=== PATIENT | female | born 1945 | race Caucasian/White ===

== ENCOUNTER 2017-01-23 16:17 | Inpatient (IN) | payer MEDICARE, MEDICAID ==
[~2017-01-23] VITALS: Ht 162.6 cm; Wt 90.7 kg
[2017-01-23] MEDS ORDERED: RISPERIDONE 1 MG TABLET PO ONE (20:00)
[2017-01-23] MEDS ORDERED: LORazepam 2 MG/ML, 1ML IVPush ONE (20:30)
[2017-01-23] MEDS ORDERED: BISACODYL 10 MG SUPP PR PRN (20:30)
[2017-01-23] MEDS ORDERED: LORazepam 2 MG/ML, 1ML IM ONE (20:30)
[2017-01-23] MEDS ORDERED: ZIPRASIDONE 20 MG INJ IM PRN (20:30)
[2017-01-23] MEDS ORDERED: DOCUSATE 100 MG CAPSULE PO PRN (20:30)
[2017-01-23] MEDS ORDERED: ENOXAPARIN 40 MG/0.4 ML SQ SCH (20:30)
[2017-01-23] MEDS ORDERED: ONDANSETRON ODT 4 MG PO PRN (20:30)
[2017-01-23] MEDS ORDERED: ZIPRASIDONE 20 MG INJ IM ONE ×2 (20:30→22:09)
[2017-01-23] MEDS ORDERED: ACETAMINOPHEN 325 MG TABLET PO PRN (20:30)
[2017-01-23] MEDS ORDERED: POLYETHYLENE GLYCOL 17 GM PACKET PO PRN (20:30)
[2017-01-23] MEDS: RISPERIDONE 1 MG TABLET PO SCH (21:00)
[2017-01-23] MEDS ORDERED: TRIF10TA PO (21:07)
[2017-01-23] MEDS ORDERED: TRIF5TAB7 PO (21:07)
[2017-01-23] MEDS ORDERED: LORazepam 2 MG/ML, 1ML ONE (22:42)
[2017-01-23 23:28] LABS: HEMATOCRIT 31.2 % (34.6-47.8); HEMOGLOBIN 10.5 g/dL (11.7-16.4); WHITE BLOOD COUNT 5.8 x10^3/uL (3.4-10)
[2017-01-23 23:43] LABS: ACETAMINOPHEN < 2 mcg/mL (10-30)
[2017-01-24 00:50] VITALS: BP 177/100
[2017-01-24 02:31] VITALS: BP 143/88
[2017-01-24] MEDS ORDERED: ENOXAPARIN 30 MG/0.3 ML SQ SCH ×2 (07:00→21:00)
[2017-01-24 07:20] VITALS: BP 137/81
[2017-01-24] MEDS: HEPARIN 5,000 UNITS/ML, 1ML SQ SCH ×2 (09:00→21:00)
[2017-01-24] MEDS: RISPERIDONE 1 MG TABLET PO SCH ×2 (09:15→22:59)
[2017-01-24 14:30] VITALS: BP 138/77
[2017-01-24 20:00] VITALS: BP 144/78
[2017-01-25 03:00] VITALS: BP 110/74
[2017-01-25 04:56] LABS: HEMOGLOBIN 9.6 g/dL (11.7-16.4); WHITE BLOOD COUNT 5.1 x10^3/uL (3.4-10)
[2017-01-25 05:02] LABS: BLOOD UREA NITROGEN 61 mg/dL (7-18)
[2017-01-25 09:10] VITALS: BP 133/86
[2017-01-25] MEDS: HEPARIN 5,000 UNITS/ML, 1ML SQ SCH ×2 (09:27→21:00)
[2017-01-25] MEDS: RISPERIDONE 1 MG TABLET PO SCH ×2 (09:28→21:00)
[2017-01-25 14:01] VITALS: BP 107/69
[2017-01-25] MEDS ORDERED: POLYETHYLENE GLYCOL 17 GM PACKET PO PRN (15:30)
[2017-01-25] MEDS ORDERED: ONDANSETRON ODT 4 MG PO PRN (15:30)
[2017-01-25] MEDS ORDERED: BISACODYL 10 MG SUPP PR PRN (15:30)
[2017-01-25] MEDS ORDERED: ZIPRASIDONE 20 MG INJ IM PRN (15:30)
[2017-01-25] MEDS ORDERED: ACETAMINOPHEN 325 MG TABLET PO PRN (15:30)
[2017-01-25 19:30] VITALS: BP 169/93
[2017-01-26] MEDS: RISPERIDONE 1 MG TABLET PO SCH ×2 (00:54→09:21)
[2017-01-26 02:45] VITALS: BP 138/85
[2017-01-26 07:25] VITALS: BP 122/78
[2017-01-26] MEDS: HEPARIN 5,000 UNITS/ML, 1ML SQ SCH ×2 (09:21→21:00)
[2017-01-26] MEDS ORDERED: SODIUM CHLORIDE 0.9% 1,000 ML IV SCH (10:00)
[2017-01-26] MEDS: TRIFLUOPERAZINE 5 MG PO SCH ×2 (12:19→21:00)
[2017-01-26] MEDS: DIVALPROEX 125 MG CAP.SPRINK PO SCH ×2 (12:20→16:55)
[2017-01-26] MEDS: CITALOPRAM 20 MG TABLET PO SCH (12:20)
[2017-01-26 12:35] VITALS: BP 167/78
[2017-01-26] MEDS: MIRTAZAPINE 15 MG TABLET PO SCH (21:00)
[2017-01-27] MEDS: DIVALPROEX 125 MG CAP.SPRINK PO SCH ×3 (02:00→18:00)
[2017-01-27 07:10] VITALS: BP 155/86
[2017-01-27] MEDS: CITALOPRAM 20 MG TABLET PO SCH (08:34)
[2017-01-27] MEDS: MEMANTINE 10MG TABLET PO SCH (08:35)
[2017-01-27] MEDS: TRIFLUOPERAZINE 2 MG PO SCH ×2 (08:35→21:00)
[2017-01-27] MEDS: HEPARIN 5,000 UNITS/ML, 1ML SQ SCH ×2 (08:35→21:00)
[2017-01-27 19:05] VITALS: BP 126/78
[2017-01-27] MEDS: MIRTAZAPINE 15 MG TABLET PO SCH (21:00)
[2017-01-28] MEDS: DIVALPROEX 125 MG CAP.SPRINK PO SCH ×3 (02:00→18:00)
[2017-01-28 03:45] VITALS: BP 149/89
[2017-01-28 07:42] VITALS: BP 147/92
[2017-01-28] MEDS: TRIFLUOPERAZINE 2 MG PO SCH ×2 (09:00→20:43)
[2017-01-28] MEDS: HEPARIN 5,000 UNITS/ML, 1ML SQ SCH ×2 (09:00→20:43)
[2017-01-28] MEDS: CITALOPRAM 20 MG TABLET PO SCH (09:00)
[2017-01-28] MEDS: MEMANTINE 10MG TABLET PO SCH (09:00)
[2017-01-28] MEDS ORDERED: TRIFLUOPERAZINE 1 MG PO ONE (13:00)
[2017-01-28] MEDS ORDERED: TRIFLUOPERAZINE 2 MG PO ONE (13:00)
[2017-01-28 13:53] VITALS: BP 170/70
[2017-01-28 19:52] VITALS: BP 167/77
[2017-01-28] MEDS: MIRTAZAPINE 15 MG TABLET PO SCH (20:43)
[2017-01-29 01:01] VITALS: BP 170/101
[2017-01-29] MEDS: DIVALPROEX 125 MG CAP.SPRINK PO SCH ×2 (02:00→10:00)
[2017-01-29] MEDS: CITALOPRAM 20 MG TABLET PO SCH (09:00)
[2017-01-29] MEDS: TRIFLUOPERAZINE 2 MG PO SCH (09:00)
[2017-01-29] MEDS: MEMANTINE 10MG TABLET PO SCH (09:00)
[2017-01-29] MEDS: HEPARIN 5,000 UNITS/ML, 1ML SQ SCH ×2 (09:00→21:00)
[2017-01-29] MEDS ORDERED: hydrALAzine 20 MG/ML, 1ML IV PRN (12:00)
[2017-01-29] MEDS: INSULIN ASPART 100 UNITS/ML, PEN SQ-INSULIN SCH ×2 (16:00→21:00)
[2017-01-29] MEDS: METOPROLOL TARTRATE 25 MG TABLET PO SCH (17:39)
[2017-01-29 20:00] VITALS: BP 147/83
[2017-01-29] MEDS: TRIFLUOPERAZINE 10 MG PO SCH (21:00)
[2017-01-29] MEDS ORDERED: TRIFLUOPERAZINE 2 MG PO SCH (21:00)
[2017-01-29] MEDS ORDERED: TRIFLUOPERAZINE 10 MG PO SCH (21:00)
[2017-01-30 04:57] VITALS: BP 134/88
[2017-01-30] MEDS: METOPROLOL TARTRATE 25 MG TABLET PO SCH ×3 (05:25→18:14)
[2017-01-30 06:48] VITALS: BP 135/81
[2017-01-30] MEDS: INSULIN ASPART 100 UNITS/ML, PEN SQ-INSULIN SCH ×4 (07:00→21:00)
[2017-01-30 08:05] LABS: BLOOD UREA NITROGEN 59 mg/dL (7-18)
[2017-01-30] MEDS: MEMANTINE 10MG TABLET PO SCH (08:39)
[2017-01-30] MEDS: HEPARIN 5,000 UNITS/ML, 1ML SQ SCH ×2 (08:40→21:00)
[2017-01-30] MEDS: TRIFLUOPERAZINE 10 MG PO SCH ×3 (08:40→11:37)
[2017-01-30 13:58] VITALS: BP 150/81
[2017-01-30 20:32] VITALS: BP 145/77
[2017-01-31 02:59] VITALS: BP 135/80
[2017-01-31] MEDS: METOPROLOL TARTRATE 25 MG TABLET PO SCH ×2 (05:33→18:00)
[2017-01-31] MEDS: INSULIN ASPART 100 UNITS/ML, PEN SQ-INSULIN SCH ×4 (07:00→20:46)
[2017-01-31] MEDS: TRIFLUOPERAZINE 10 MG PO SCH ×2 (08:36→20:45)
[2017-01-31] MEDS: MEMANTINE 10MG TABLET PO SCH (08:38)
[2017-01-31] MEDS: HEPARIN 5,000 UNITS/ML, 1ML SQ SCH ×2 (08:44→20:45)
[2017-01-31 15:55] VITALS: BP 152/87
[2017-01-31 18:40] VITALS: BP 173/83
[2017-02-01 01:42] VITALS: BP 150/76
[2017-02-01 05:07] LABS: HEMATOCRIT 30.2 % (34.6-47.8); HEMOGLOBIN 10.1 g/dL (11.7-16.4); WHITE BLOOD COUNT 5.9 x10^3/uL (3.4-10)
[2017-02-01 05:15] LABS: BLOOD UREA NITROGEN 60 mg/dL (7-18)
[2017-02-01] MEDS: METOPROLOL TARTRATE 25 MG TABLET PO SCH ×2 (05:22→18:00)
[2017-02-01] MEDS: INSULIN ASPART 100 UNITS/ML, PEN SQ-INSULIN SCH ×4 (07:00→21:00)
[2017-02-01 07:17] VITALS: BP 152/80
[2017-02-01] MEDS: HEPARIN 5,000 UNITS/ML, 1ML SQ SCH ×2 (09:00→21:00)
[2017-02-01] MEDS: TRIFLUOPERAZINE 10 MG PO SCH ×2 (12:18→21:00)
[2017-02-01] MEDS: MEMANTINE 10MG TABLET PO SCH (12:18)
[2017-02-01 13:36] VITALS: BP 155/80
[2017-02-01 19:29] VITALS: BP 152/76
[2017-02-01] MEDS ORDERED: ONDANSETRON ODT 4 MG PO PRN (19:30)
[2017-02-01] MEDS ORDERED: POLYETHYLENE GLYCOL 17 GM PACKET PO PRN (19:30)
[2017-02-01] MEDS ORDERED: BISACODYL 10 MG SUPP PR PRN (19:30)
[2017-02-01] MEDS ORDERED: hydrALAzine 20 MG/ML, 1ML IV PRN (19:30)
[2017-02-01] MEDS ORDERED: ZIPRASIDONE 20 MG INJ IM PRN (19:30)
[2017-02-01] MEDS ORDERED: ACETAMINOPHEN 325 MG TABLET PO PRN (19:30)
[2017-02-02] MEDS ORDERED: ZIPRASIDONE 20 MG INJ IM ONE
[2017-02-02 01:57] VITALS: BP 144/72
[2017-02-02] MEDS: METOPROLOL TARTRATE 25 MG TABLET PO SCH ×2 (06:00→16:44)
[2017-02-02] MEDS: INSULIN ASPART 100 UNITS/ML, PEN SQ-INSULIN SCH ×3 (07:00→16:00)
[2017-02-02 08:13] VITALS: BP 158/91
[2017-02-02] MEDS: MEMANTINE 10MG TABLET PO SCH ×2 (08:23→09:00)
[2017-02-02] MEDS: TRIFLUOPERAZINE 10 MG PO SCH ×2 (08:25→19:34)
[2017-02-02] MEDS: HEPARIN 5,000 UNITS/ML, 1ML SQ SCH ×2 (09:00→19:39)
[2017-02-02 13:52] VITALS: BP 145/81
[2017-02-02 19:47] VITALS: BP 142/85
[2017-02-03 01:03] VITALS: BP 136/82
[2017-02-03] MEDS: METOPROLOL TARTRATE 25 MG TABLET PO SCH ×2 (05:52→18:00)
[2017-02-03 07:20] VITALS: BP 148/86
[2017-02-03 07:26] VITALS: BP 150/88
[2017-02-03] MEDS: MEMANTINE 10MG TABLET PO SCH (09:00)
[2017-02-03] MEDS: HEPARIN 5,000 UNITS/ML, 1ML SQ SCH ×2 (09:00→21:00)
[2017-02-03] MEDS: TRIFLUOPERAZINE 10 MG PO SCH ×2 (11:59→21:23)
[2017-02-03 13:55] VITALS: BP 143/91
[2017-02-03 19:18] VITALS: BP 148/86
[2017-02-04 01:22] VITALS: BP 141/82
[2017-02-04] MEDS: METOPROLOL TARTRATE 25 MG TABLET PO SCH ×2 (06:00→17:14)
[2017-02-04 07:41] VITALS: BP 151/79
[2017-02-04] MEDS: TRIFLUOPERAZINE 10 MG PO SCH ×2 (10:06→20:19)
[2017-02-04] MEDS: HEPARIN 5,000 UNITS/ML, 1ML SQ SCH ×2 (10:11→21:00)
[2017-02-04] MEDS: MEMANTINE 10MG TABLET PO SCH (10:11)
[2017-02-04 13:57] VITALS: BP 179/105
[2017-02-04 20:28] VITALS: BP 161/119
[2017-02-04 22:10] VITALS: BP 147/96
[2017-02-05 01:05] VITALS: BP 123/74
[2017-02-05] MEDS: METOPROLOL TARTRATE 25 MG TABLET PO SCH ×3 (06:00→17:41)
[2017-02-05 07:44] VITALS: BP 169/79
[2017-02-05] MEDS: TRIFLUOPERAZINE 10 MG PO SCH ×2 (07:57→21:31)
[2017-02-05] MEDS: MEMANTINE 10MG TABLET PO SCH (07:58)
[2017-02-05] MEDS: HEPARIN 5,000 UNITS/ML, 1ML SQ SCH ×2 (07:58→21:00)
[2017-02-05] MEDS ORDERED: METOPROLOL TARTRATE 25 MG TABLET PO SCH (10:00)
[2017-02-05 13:57] VITALS: BP 150/79
[2017-02-05 20:29] VITALS: BP 133/77
[2017-02-06 05:26] VITALS: BP 130/70
[2017-02-06] MEDS: METOPROLOL TARTRATE 25 MG TABLET PO SCH ×2 (06:00→18:27)
[2017-02-06 07:27] VITALS: BP 134/78
[2017-02-06] MEDS: TRIFLUOPERAZINE 10 MG PO SCH ×2 (07:28→20:53)
[2017-02-06] MEDS: HEPARIN 5,000 UNITS/ML, 1ML SQ SCH ×2 (07:28→20:53)
[2017-02-06] MEDS: MEMANTINE 10MG TABLET PO SCH (07:28)
[2017-02-06 17:05] VITALS: BP 152/91
[2017-02-07] MEDS: METOPROLOL TARTRATE 25 MG TABLET PO SCH ×2 (06:43→18:00)
[2017-02-07 08:09] VITALS: BP 155/78
[2017-02-07] MEDS: HEPARIN 5,000 UNITS/ML, 1ML SQ SCH ×2 (09:00→20:33)
[2017-02-07] MEDS: MEMANTINE 10MG TABLET PO SCH (09:00)
[2017-02-07] MEDS: TRIFLUOPERAZINE 10 MG PO SCH ×2 (11:01→20:33)
[2017-02-07 19:00] VITALS: BP 142/83
[2017-02-08 03:55] VITALS: BP 132/67
[2017-02-08] MEDS: METOPROLOL TARTRATE 25 MG TABLET PO SCH ×2 (05:31→18:00)
[2017-02-08] MEDS: HEPARIN 5,000 UNITS/ML, 1ML SQ SCH ×2 (09:00→20:45)
[2017-02-08] MEDS: MEMANTINE 10MG TABLET PO SCH (09:00)
[2017-02-08 09:12] VITALS: BP 176/84
[2017-02-08] MEDS: TRIFLUOPERAZINE 10 MG PO SCH ×2 (10:46→20:44)
[2017-02-08 15:16] VITALS: BP 155/83
[2017-02-08] MEDS ORDERED: POLYETHYLENE GLYCOL 17 GM PACKET PO PRN (16:00)
[2017-02-08] MEDS ORDERED: ZIPRASIDONE 20 MG INJ IM PRN (16:00)
[2017-02-08] MEDS ORDERED: ACETAMINOPHEN 325 MG TABLET PO PRN (16:00)
[2017-02-08] MEDS ORDERED: hydrALAzine 20 MG/ML, 1ML IV PRN (16:00)
[2017-02-08] MEDS ORDERED: ONDANSETRON ODT 4 MG PO PRN (16:00)
[2017-02-08] MEDS ORDERED: BISACODYL 10 MG SUPP PR PRN (16:00)
[2017-02-08 19:45] VITALS: BP 154/81
[2017-02-09 03:56] VITALS: BP 126/75
[2017-02-09] MEDS: METOPROLOL TARTRATE 25 MG TABLET PO SCH ×2 (06:00→18:00)
[2017-02-09] MEDS: MEMANTINE 10MG TABLET PO SCH (09:00)
[2017-02-09] MEDS: HEPARIN 5,000 UNITS/ML, 1ML SQ SCH ×2 (09:00→20:38)
[2017-02-09 09:05] VITALS: BP 161/87
[2017-02-09] MEDS: TRIFLUOPERAZINE 10 MG PO SCH ×2 (09:34→21:06)
[2017-02-09 14:30] VITALS: BP 154/85
[2017-02-09 19:32] VITALS: BP 158/83
[2017-02-10 00:26] VITALS: BP 127/76
[2017-02-10] MEDS: METOPROLOL TARTRATE 25 MG TABLET PO SCH ×2 (05:16→18:00)
[2017-02-10 07:15] VITALS: BP 154/85
[2017-02-10] MEDS: MEMANTINE 10MG TABLET PO SCH (09:00)
[2017-02-10] MEDS: HEPARIN 5,000 UNITS/ML, 1ML SQ SCH ×2 (09:00→21:00)
[2017-02-10] MEDS: TRIFLUOPERAZINE 10 MG PO SCH ×2 (10:24→21:00)
[2017-02-10 14:11] VITALS: BP 157/91
[2017-02-10 19:19] VITALS: BP 146/79
[2017-02-11 01:38] VITALS: BP 123/74
[2017-02-11] MEDS: METOPROLOL TARTRATE 25 MG TABLET PO SCH ×2 (05:31→16:29)
[2017-02-11 07:13] VITALS: BP 182/110
[2017-02-11] MEDS: TRIFLUOPERAZINE 10 MG PO SCH ×2 (08:31→20:43)
[2017-02-11] MEDS: MEMANTINE 10MG TABLET PO SCH (08:32)
[2017-02-11] MEDS: HEPARIN 5,000 UNITS/ML, 1ML SQ SCH ×2 (08:32→20:43)
[2017-02-11 13:50] VITALS: BP 190/102
[2017-02-11 18:54] VITALS: BP 148/87
[2017-02-12 00:37] VITALS: BP 169/89
[2017-02-12] MEDS: METOPROLOL TARTRATE 25 MG TABLET PO SCH ×2 (03:55→18:00)
[2017-02-12 07:48] VITALS: BP 156/90
[2017-02-12] MEDS: HEPARIN 5,000 UNITS/ML, 1ML SQ SCH ×2 (09:00→20:12)
[2017-02-12] MEDS: TRIFLUOPERAZINE 10 MG PO SCH ×2 (10:34→20:12)
[2017-02-12] MEDS: MEMANTINE 10MG TABLET PO SCH (10:34)
[2017-02-12 12:46] VITALS: BP 146/84
[2017-02-12 18:29] VITALS: BP 171/89
[2017-02-13 00:15] VITALS: BP 132/87
[2017-02-13] MEDS: METOPROLOL TARTRATE 25 MG TABLET PO SCH ×2 (05:09→17:58)
[2017-02-13 06:46] VITALS: BP 140/83
[2017-02-13] MEDS: MEMANTINE 10MG TABLET PO SCH (09:00)
[2017-02-13] MEDS: TRIFLUOPERAZINE 10 MG PO SCH ×2 (09:00→21:18)
[2017-02-13] MEDS: HEPARIN 5,000 UNITS/ML, 1ML SQ SCH ×2 (09:00→21:00)
[2017-02-13 13:00] VITALS: BP 155/70
[2017-02-14] MEDS: METOPROLOL TARTRATE 25 MG TABLET PO SCH ×2 (06:00→18:00)
[2017-02-14 08:42] VITALS: BP 139/86
[2017-02-14] MEDS: HEPARIN 5,000 UNITS/ML, 1ML SQ SCH ×2 (09:00→20:01)
[2017-02-14] MEDS: MEMANTINE 10MG TABLET PO SCH (09:02)
[2017-02-14] MEDS: TRIFLUOPERAZINE 10 MG PO SCH ×2 (09:02→19:55)
[2017-02-14 14:00] VITALS: BP 117/78
[2017-02-14 19:51] VITALS: BP 137/65
[2017-02-15 03:05] VITALS: BP 139/82
[2017-02-15] MEDS: METOPROLOL TARTRATE 25 MG TABLET PO SCH ×2 (06:42→16:54)
[2017-02-15 08:37] VITALS: BP 142/91
[2017-02-15] MEDS: MEMANTINE 10MG TABLET PO SCH (09:36)
[2017-02-15] MEDS: HEPARIN 5,000 UNITS/ML, 1ML SQ SCH ×2 (09:36→19:47)
[2017-02-15] MEDS: TRIFLUOPERAZINE 10 MG PO SCH ×2 (10:37→19:47)
[2017-02-15 14:00] VITALS: BP 175/104
[2017-02-15] MEDS ORDERED: ONDANSETRON ODT 4 MG PO PRN (14:00)
[2017-02-15] MEDS ORDERED: DOCUSATE 100 MG CAPSULE PO PRN (14:00)
[2017-02-15] MEDS ORDERED: ACETAMINOPHEN 325 MG TABLET PO PRN (14:00)
[2017-02-15] MEDS ORDERED: ZIPRASIDONE 20 MG INJ IM PRN (14:00)
[2017-02-15] MEDS ORDERED: BISACODYL 10 MG SUPP PR PRN (14:00)
[2017-02-15] MEDS ORDERED: hydrALAzine 20 MG/ML, 1ML IV PRN (14:00)
[2017-02-15 19:20] VITALS: BP 165/84
[2017-02-16 01:56] VITALS: BP 134/68
[2017-02-16] MEDS: METOPROLOL TARTRATE 25 MG TABLET PO SCH ×2 (06:00→18:13)
[2017-02-16 07:36] VITALS: BP 144/78
[2017-02-16] MEDS: HEPARIN 5,000 UNITS/ML, 1ML SQ SCH ×2 (07:51→20:05)
[2017-02-16] MEDS: MEMANTINE 10MG TABLET PO SCH (07:51)
[2017-02-16] MEDS: TRIFLUOPERAZINE 10 MG PO SCH ×2 (07:51→20:04)
[2017-02-16 13:28] VITALS: BP 144/87
[2017-02-16 19:39] VITALS: BP 138/84
[2017-02-17 01:20] VITALS: BP 143/88
[2017-02-17] MEDS: METOPROLOL TARTRATE 25 MG TABLET PO SCH ×2 (04:40→17:48)
[2017-02-17 05:01] LABS: HEMATOCRIT 29.6 % (34.6-47.8); HEMOGLOBIN 9.8 g/dL (11.7-16.4); WHITE BLOOD COUNT 6.1 x10^3/uL (3.4-10)
[2017-02-17 05:13] LABS: BLOOD UREA NITROGEN 78 mg/dL (7-18)
[2017-02-17 05:19] LABS: ASPARTATE AMINO TRANSFERASE 24 U/L (15-37)
[2017-02-17 08:22] VITALS: BP 151/88
[2017-02-17] MEDS: TRIFLUOPERAZINE 10 MG PO SCH ×2 (08:59→20:47)
[2017-02-17] MEDS: HEPARIN 5,000 UNITS/ML, 1ML SQ SCH ×2 (09:00→20:49)
[2017-02-17] MEDS: MEMANTINE 10MG TABLET PO SCH (09:00)
[2017-02-17 14:14] VITALS: BP 152/68
[2017-02-17 19:22] VITALS: BP 146/62
[2017-02-18 01:28] VITALS: BP 151/68
[2017-02-18] MEDS: METOPROLOL TARTRATE 25 MG TABLET PO SCH ×2 (06:00→17:45)
[2017-02-18] MEDS: TRIFLUOPERAZINE 10 MG PO SCH ×2 (09:18→21:00)
[2017-02-18] MEDS: HEPARIN 5,000 UNITS/ML, 1ML SQ SCH ×2 (09:19→21:00)
[2017-02-18] MEDS: MEMANTINE 10MG TABLET PO SCH (09:19)
[2017-02-18 09:33] VITALS: BP 174/82
[2017-02-18 15:31] VITALS: BP 178/85
[2017-02-18 19:27] VITALS: BP 184/73
[2017-02-19 01:29] VITALS: BP 152/90
[2017-02-19] MEDS: METOPROLOL TARTRATE 25 MG TABLET PO SCH ×2 (06:00→18:00)
[2017-02-19 07:41] VITALS: BP_SYST 112; BP_SYST 122; BP_DIAS 71; BP_DIAS 82
[2017-02-19] MEDS: MEMANTINE 10MG TABLET PO SCH (09:00)
[2017-02-19] MEDS: HEPARIN 5,000 UNITS/ML, 1ML SQ SCH ×2 (09:00→21:00)
[2017-02-19] MEDS: TRIFLUOPERAZINE 10 MG PO SCH ×2 (09:00→22:54)
[2017-02-19 15:11] VITALS: BP 155/79
[2017-02-19 18:52] VITALS: BP 163/92
[2017-02-20 01:47] VITALS: BP 123/79
[2017-02-20] MEDS: METOPROLOL TARTRATE 25 MG TABLET PO SCH ×2 (05:40→18:00)
[2017-02-20 07:25] VITALS: BP 165/80
[2017-02-20] MEDS: TRIFLUOPERAZINE 10 MG PO SCH ×2 (08:58→20:35)
[2017-02-20] MEDS: HEPARIN 5,000 UNITS/ML, 1ML SQ SCH ×3 (08:58→20:35)
[2017-02-20] MEDS: MEMANTINE 10MG TABLET PO SCH (08:58)
[2017-02-20 14:00] VITALS: BP 122/82
[2017-02-20 18:59] VITALS: BP 150/83
[2017-02-21 02:13] VITALS: BP 163/78
[2017-02-21] MEDS: METOPROLOL TARTRATE 25 MG TABLET PO SCH ×2 (06:00→17:49)
[2017-02-21 07:34] VITALS: BP 135/84
[2017-02-21] MEDS: MEMANTINE 10MG TABLET PO SCH (09:00)
[2017-02-21] MEDS: HEPARIN 5,000 UNITS/ML, 1ML SQ SCH ×3 (09:00→20:41)
[2017-02-21] MEDS: TRIFLUOPERAZINE 10 MG PO SCH ×2 (09:00→20:41)
[2017-02-21 13:41] VITALS: BP 150/78
[2017-02-21 19:58] VITALS: BP 133/67
[2017-02-22 00:49] VITALS: BP 135/74
[2017-02-22] MEDS: METOPROLOL TARTRATE 25 MG TABLET PO SCH ×2 (05:35→18:16)
[2017-02-22 07:39] VITALS: BP 109/70
[2017-02-22] MEDS: TRIFLUOPERAZINE 10 MG PO SCH ×2 (08:20→21:00)
[2017-02-22] MEDS: HEPARIN 5,000 UNITS/ML, 1ML SQ SCH ×3 (08:21→21:00)
[2017-02-22] MEDS: MEMANTINE 10MG TABLET PO SCH (08:21)
[2017-02-22 12:52] VITALS: BP 158/83
[2017-02-22 19:48] VITALS: BP 159/90
[2017-02-22] MEDS ORDERED: ACETAMINOPHEN 325 MG TABLET PO PRN (20:00)
[2017-02-22] MEDS ORDERED: DOCUSATE 100 MG CAPSULE PO PRN (20:00)
[2017-02-22] MEDS ORDERED: ONDANSETRON ODT 4 MG PO PRN (20:00)
[2017-02-22] MEDS ORDERED: ZIPRASIDONE 20 MG INJ IM PRN (20:00)
[2017-02-22] MEDS ORDERED: POLYETHYLENE GLYCOL 17 GM PACKET PO PRN (20:00)
[2017-02-22] MEDS ORDERED: hydrALAzine 20 MG/ML, 1ML IV PRN (20:00)
[2017-02-22] MEDS ORDERED: BISACODYL 10 MG SUPP PR PRN (20:00)
[2017-02-23 05:57] VITALS: BP 154/86
[2017-02-23] MEDS: METOPROLOL TARTRATE 25 MG TABLET PO SCH ×2 (06:45→17:04)
[2017-02-23 08:05] VITALS: BP 120/83
[2017-02-23] MEDS: HEPARIN 5,000 UNITS/ML, 1ML SQ SCH ×3 (08:19→20:46)
[2017-02-23] MEDS: TRIFLUOPERAZINE 10 MG PO SCH ×2 (08:19→20:46)
[2017-02-23] MEDS: MEMANTINE 10MG TABLET PO SCH (08:19)
[2017-02-23 15:35] VITALS: BP 142/88
[2017-02-23 19:26] VITALS: BP 137/82
[2017-02-24 01:23] VITALS: BP 119/72
[2017-02-24] MEDS: METOPROLOL TARTRATE 25 MG TABLET PO SCH ×2 (05:47→17:33)
[2017-02-24 07:45] VITALS: BP 155/81
[2017-02-24] MEDS: MEMANTINE 10MG TABLET PO SCH (09:00)
[2017-02-24] MEDS: HEPARIN 5,000 UNITS/ML, 1ML SQ SCH ×3 (09:00→21:00)
[2017-02-24] MEDS: TRIFLUOPERAZINE 10 MG PO SCH ×2 (09:00→22:44)
[2017-02-24 12:25] VITALS: BP 159/85
[2017-02-24 19:51] VITALS: BP 152/81
[2017-02-25] MEDS: METOPROLOL TARTRATE 25 MG TABLET PO SCH ×2 (06:00→17:28)
[2017-02-25 07:40] VITALS: BP 132/87
[2017-02-25] MEDS: HEPARIN 5,000 UNITS/ML, 1ML SQ SCH ×3 (09:00→21:00)
[2017-02-25] MEDS: TRIFLUOPERAZINE 10 MG PO SCH ×2 (09:00→20:56)
[2017-02-25] MEDS: MEMANTINE 10MG TABLET PO SCH (09:00)
[2017-02-25 15:00] VITALS: BP 166/86
[2017-02-25 20:00] VITALS: BP 177/81
[2017-02-26 03:21] VITALS: BP 152/91
[2017-02-26 07:25] VITALS: BP 138/65
[2017-02-26] MEDS: METOPROLOL TARTRATE 25 MG TABLET PO SCH ×2 (07:30→17:44)
[2017-02-26] MEDS: HEPARIN 5,000 UNITS/ML, 1ML SQ SCH ×3 (07:49→22:00)
[2017-02-26] MEDS: TRIFLUOPERAZINE 10 MG PO SCH ×2 (09:00→19:56)
[2017-02-26] MEDS: MEMANTINE 10MG TABLET PO SCH (09:00)
[2017-02-26 13:40] VITALS: BP 143/95
[2017-02-26 19:04] VITALS: BP 159/84
[2017-02-27 03:35] VITALS: BP 142/89
[2017-02-27] MEDS: METOPROLOL TARTRATE 25 MG TABLET PO SCH ×2 (05:56→17:10)
[2017-02-27] MEDS: HEPARIN 5,000 UNITS/ML, 1ML SQ SCH ×3 (05:57→20:17)
[2017-02-27 07:04] VITALS: BP 151/94
[2017-02-27] MEDS: MEMANTINE 10MG TABLET PO SCH (09:00)
[2017-02-27] MEDS: TRIFLUOPERAZINE 10 MG PO SCH ×2 (09:00→20:17)
[2017-02-27 13:31] VITALS: BP 174/97
[2017-02-27 18:59] VITALS: BP 150/81
[2017-02-28 00:38] VITALS: BP 111/72
[2017-02-28] MEDS: HEPARIN 5,000 UNITS/ML, 1ML SQ SCH ×3 (05:45→22:00)
[2017-02-28] MEDS: METOPROLOL TARTRATE 25 MG TABLET PO SCH ×3 (05:50→17:09)
[2017-02-28 06:52] VITALS: BP 125/73
[2017-02-28] MEDS: MEMANTINE 10MG TABLET PO SCH (08:34)
[2017-02-28] MEDS: TRIFLUOPERAZINE 10 MG PO SCH ×2 (11:06→19:56)
[2017-02-28 13:02] VITALS: BP 138/81
[2017-02-28 18:33] VITALS: BP 161/73
[2017-03-01 02:11] VITALS: BP 144/85
[2017-03-01] MEDS: METOPROLOL TARTRATE 25 MG TABLET PO SCH ×2 (05:54→18:46)
[2017-03-01] MEDS: HEPARIN 5,000 UNITS/ML, 1ML SQ SCH ×3 (05:57→20:22)
[2017-03-01 07:01] VITALS: BP 100/79
[2017-03-01] MEDS: TRIFLUOPERAZINE 10 MG PO SCH ×2 (09:00→20:22)
[2017-03-01] MEDS: MEMANTINE 10MG TABLET PO SCH (09:11)
[2017-03-01 14:00] VITALS: BP 110/78
[2017-03-01] MEDS ORDERED: ACETAMINOPHEN 325 MG TABLET PO PRN (15:00)
[2017-03-01] MEDS ORDERED: POLYETHYLENE GLYCOL 17 GM PACKET PO PRN (15:00)
[2017-03-01] MEDS ORDERED: ZIPRASIDONE 20 MG INJ IM PRN (15:00)
[2017-03-01] MEDS ORDERED: DOCUSATE 100 MG CAPSULE PO PRN (15:00)
[2017-03-01] MEDS ORDERED: hydrALAzine 20 MG/ML, 1ML IV PRN (15:00)
[2017-03-01] MEDS ORDERED: BISACODYL 10 MG SUPP PR PRN (15:00)
[2017-03-01] MEDS ORDERED: ONDANSETRON ODT 4 MG PO PRN (15:00)
[2017-03-01 16:04] VITALS: BP 109/74
[2017-03-01 19:44] VITALS: BP 168/63
[2017-03-02 01:57] VITALS: BP 144/75
[2017-03-02] MEDS: METOPROLOL TARTRATE 25 MG TABLET PO SCH ×2 (04:58→18:00)
[2017-03-02] MEDS: HEPARIN 5,000 UNITS/ML, 1ML SQ SCH ×3 (04:58→22:00)
[2017-03-02 06:57] VITALS: BP 133/82
[2017-03-02] MEDS: MEMANTINE 10MG TABLET PO SCH (09:00)
[2017-03-02] MEDS: TRIFLUOPERAZINE 10 MG PO SCH ×2 (09:00→21:28)
[2017-03-02 12:50] VITALS: BP 169/101
[2017-03-02 18:44] VITALS: BP 163/85
[2017-03-03 00:43] VITALS: BP 150/88
[2017-03-03] MEDS: METOPROLOL TARTRATE 25 MG TABLET PO SCH ×2 (05:51→18:00)
[2017-03-03] MEDS: HEPARIN 5,000 UNITS/ML, 1ML SQ SCH ×3 (06:00→21:51)
[2017-03-03 07:08] VITALS: BP 132/85
[2017-03-03 08:52] LABS: HEMATOCRIT 31.2 % (34.6-47.8); HEMOGLOBIN 10.5 g/dL (11.7-16.4); WHITE BLOOD COUNT 4.9 x10^3/uL (3.4-10)
[2017-03-03] MEDS: MEMANTINE 10MG TABLET PO SCH ×2 (09:00→09:09)
[2017-03-03 09:03] LABS: BLOOD UREA NITROGEN 95 mg/dL (7-18)
[2017-03-03] MEDS: TRIFLUOPERAZINE 10 MG PO SCH ×2 (09:09→21:00)
[2017-03-03 13:40] VITALS: BP 147/78
[2017-03-03 19:01] VITALS: BP 177/103
[2017-03-04 00:50] VITALS: BP 150/82
[2017-03-04] MEDS: HEPARIN 5,000 UNITS/ML, 1ML SQ SCH ×3 (06:00→20:09)
[2017-03-04] MEDS: METOPROLOL TARTRATE 25 MG TABLET PO SCH ×2 (06:00→18:00)
[2017-03-04 08:00] VITALS: BP 156/88
[2017-03-04] MEDS: MEMANTINE 10MG TABLET PO SCH (08:58)
[2017-03-04] MEDS: TRIFLUOPERAZINE 10 MG PO SCH ×2 (08:59→20:08)
[2017-03-04 13:59] VITALS: BP 137/67
[2017-03-04 18:59] VITALS: BP 153/82
[2017-03-05 00:30] VITALS: BP 150/78
[2017-03-05] MEDS: METOPROLOL TARTRATE 25 MG TABLET PO SCH ×2 (05:31→17:37)
[2017-03-05] MEDS: HEPARIN 5,000 UNITS/ML, 1ML SQ SCH ×3 (05:32→22:00)
[2017-03-05 08:44] VITALS: BP 126/81
[2017-03-05] MEDS: MEMANTINE 10MG TABLET PO SCH (09:00)
[2017-03-05] MEDS: TRIFLUOPERAZINE 10 MG PO SCH ×2 (09:00→22:11)
[2017-03-05 15:17] VITALS: BP 147/88
[2017-03-05 20:30] VITALS: BP 155/85
[2017-03-06 02:28] VITALS: BP 150/70
[2017-03-06] MEDS: METOPROLOL TARTRATE 25 MG TABLET PO SCH ×2 (05:41→16:43)
[2017-03-06] MEDS: HEPARIN 5,000 UNITS/ML, 1ML SQ SCH ×3 (05:42→22:00)
[2017-03-06 08:00] VITALS: BP 153/87
[2017-03-06] MEDS: MEMANTINE 10MG TABLET PO SCH (08:45)
[2017-03-06] MEDS: TRIFLUOPERAZINE 10 MG PO SCH ×2 (08:46→21:12)
[2017-03-06 14:00] VITALS: BP 162/80
[2017-03-06 19:54] VITALS: BP 167/93
[2017-03-07 03:45] VITALS: BP 115/71
[2017-03-07] MEDS: HEPARIN 5,000 UNITS/ML, 1ML SQ SCH ×3 (06:00→22:00)
[2017-03-07] MEDS: METOPROLOL TARTRATE 25 MG TABLET PO SCH ×2 (06:11→18:00)
[2017-03-07 07:05] VITALS: BP 135/79
[2017-03-07] MEDS: TRIFLUOPERAZINE 10 MG PO SCH ×2 (09:00→20:22)
[2017-03-07] MEDS: MEMANTINE 10MG TABLET PO SCH (09:00)
[2017-03-07 16:17] VITALS: BP 154/80
[2017-03-07 19:36] VITALS: BP 149/60
[2017-03-08] MEDS: METOPROLOL TARTRATE 25 MG TABLET PO SCH ×2 (05:33→17:44)
[2017-03-08] MEDS: HEPARIN 5,000 UNITS/ML, 1ML SQ SCH ×3 (05:33→19:56)
[2017-03-08 06:43] VITALS: BP 157/90
[2017-03-08] MEDS: TRIFLUOPERAZINE 10 MG PO SCH ×2 (09:00→19:55)
[2017-03-08] MEDS: MEMANTINE 10MG TABLET PO SCH (09:00)
[2017-03-08 18:56] VITALS: BP 176/89
[2017-03-09 03:45] VITALS: BP 165/91
[2017-03-09] MEDS: METOPROLOL TARTRATE 25 MG TABLET PO SCH ×2 (05:37→18:00)
[2017-03-09] MEDS: HEPARIN 5,000 UNITS/ML, 1ML SQ SCH ×3 (06:00→22:00)
[2017-03-09 07:12] VITALS: BP 123/74
[2017-03-09] MEDS: TRIFLUOPERAZINE 10 MG PO SCH ×2 (09:00→21:03)
[2017-03-09] MEDS: MEMANTINE 10MG TABLET PO SCH (09:00)
[2017-03-09] MEDS: LOSARTAN 25MG TABLET PO SCH (10:00)
[2017-03-09 13:46] VITALS: BP 137/81
[2017-03-09 18:48] VITALS: BP 145/84
[2017-03-10 01:12] VITALS: BP 138/78
[2017-03-10] MEDS: HEPARIN 5,000 UNITS/ML, 1ML SQ SCH ×3 (06:00→21:43)
[2017-03-10] MEDS: METOPROLOL TARTRATE 25 MG TABLET PO SCH ×3 (06:00→18:00)
[2017-03-10 06:32] VITALS: BP 142/76
[2017-03-10 06:39] VITALS: BP 174/95
[2017-03-10] MEDS: MEMANTINE 10MG TABLET PO SCH (09:00)
[2017-03-10] MEDS: LOSARTAN 25MG TABLET PO SCH (09:00)
[2017-03-10] MEDS: TRIFLUOPERAZINE 10 MG PO SCH ×2 (10:36→20:30)
[2017-03-10 12:05] VITALS: BP 153/86
[2017-03-10 20:00] VITALS: BP 114/76
[2017-03-11 01:54] VITALS: BP 138/60
[2017-03-11] MEDS: METOPROLOL TARTRATE 25 MG TABLET PO SCH ×2 (06:00→18:00)
[2017-03-11] MEDS: HEPARIN 5,000 UNITS/ML, 1ML SQ SCH ×3 (06:00→22:00)
[2017-03-11 08:15] VITALS: BP 140/91
[2017-03-11] MEDS: MEMANTINE 10MG TABLET PO SCH (09:00)
[2017-03-11] MEDS: LOSARTAN 25MG TABLET PO SCH (09:00)
[2017-03-11] MEDS: TRIFLUOPERAZINE 10 MG PO SCH ×2 (09:00→21:00)
[2017-03-11 14:00] VITALS: BP 138/62
[2017-03-11 18:50] VITALS: BP 166/89
[2017-03-12 04:50] VITALS: BP 167/89
[2017-03-12] MEDS: METOPROLOL TARTRATE 25 MG TABLET PO SCH ×2 (06:00→17:40)
[2017-03-12] MEDS: HEPARIN 5,000 UNITS/ML, 1ML SQ SCH ×3 (06:00→22:00)
[2017-03-12 07:15] VITALS: BP 146/88
[2017-03-12] MEDS: LOSARTAN 25MG TABLET PO SCH (09:00)
[2017-03-12] MEDS: MEMANTINE 10MG TABLET PO SCH (09:00)
[2017-03-12] MEDS: TRIFLUOPERAZINE 10 MG PO SCH ×2 (10:00→22:44)
[2017-03-12 14:46] VITALS: BP_SYST 171; BP_SYST 183; BP_DIAS 92; BP_DIAS 94
[2017-03-12 17:10] VITALS: BP 131/78
[2017-03-12 19:00] VITALS: BP 148/85
[2017-03-13 04:36] VITALS: BP 146/89
[2017-03-13] MEDS: METOPROLOL TARTRATE 25 MG TABLET PO SCH ×2 (05:26→17:37)
[2017-03-13] MEDS: HEPARIN 5,000 UNITS/ML, 1ML SQ SCH ×3 (05:26→20:22)
[2017-03-13 06:30] VITALS: BP 135/93
[2017-03-13] MEDS: MEMANTINE 10MG TABLET PO SCH (09:00)
[2017-03-13] MEDS: LOSARTAN 25MG TABLET PO SCH (09:00)
[2017-03-13 12:24] VITALS: BP 135/79
[2017-03-13] MEDS: TRIFLUOPERAZINE 10 MG PO SCH ×2 (13:52→20:22)
[2017-03-13 20:20] VITALS: BP 170/86
[2017-03-14 02:02] VITALS: BP 138/77
[2017-03-14] MEDS: METOPROLOL TARTRATE 25 MG TABLET PO SCH ×2 (06:06→17:56)
[2017-03-14] MEDS: HEPARIN 5,000 UNITS/ML, 1ML SQ SCH ×3 (06:06→21:22)
[2017-03-14 06:32] VITALS: BP 148/85
[2017-03-14] MEDS: LOSARTAN 25MG TABLET PO SCH (09:00)
[2017-03-14] MEDS: MEMANTINE 10MG TABLET PO SCH (09:00)
[2017-03-14 13:41] VITALS: BP 166/107
[2017-03-14] MEDS: TRIFLUOPERAZINE 10 MG PO SCH ×2 (15:08→21:06)
[2017-03-14 21:13] VITALS: BP 135/77
[2017-03-15 02:22] VITALS: BP 124/71
[2017-03-15] MEDS ORDERED: DOCUSATE 100 MG CAPSULE PO PRN (04:30)
[2017-03-15] MEDS ORDERED: BISACODYL 10 MG SUPP PR PRN (04:30)
[2017-03-15] MEDS ORDERED: ONDANSETRON ODT 4 MG PO PRN (04:30)
[2017-03-15] MEDS ORDERED: hydrALAzine 20 MG/ML, 1ML IV PRN (04:30)
[2017-03-15] MEDS ORDERED: POLYETHYLENE GLYCOL 17 GM PACKET PO PRN (04:30)
[2017-03-15] MEDS ORDERED: ACETAMINOPHEN 325 MG TABLET PO PRN (04:30)
[2017-03-15] MEDS: HEPARIN 5,000 UNITS/ML, 1ML SQ SCH ×3 (06:00→19:34)
[2017-03-15] MEDS: METOPROLOL TARTRATE 25 MG TABLET PO SCH ×2 (06:00→17:55)
[2017-03-15 07:25] VITALS: BP 148/91
[2017-03-15] MEDS: TRIFLUOPERAZINE 10 MG PO SCH ×2 (09:00→19:34)
[2017-03-15] MEDS: LOSARTAN 25MG TABLET PO SCH (09:00)
[2017-03-15] MEDS: MEMANTINE 10MG TABLET PO SCH (09:00)
[2017-03-15 14:15] VITALS: BP 193/73
[2017-03-15 15:49] VITALS: BP 149/79
[2017-03-15 20:56] VITALS: BP 150/80
[2017-03-16] MEDS: METOPROLOL TARTRATE 25 MG TABLET PO SCH ×2 (06:00→17:11)
[2017-03-16] MEDS: HEPARIN 5,000 UNITS/ML, 1ML SQ SCH ×3 (06:00→19:50)
[2017-03-16] MEDS: LOSARTAN 25MG TABLET PO SCH (08:11)
[2017-03-16] MEDS: MEMANTINE 10MG TABLET PO SCH (08:11)
[2017-03-16] MEDS: TRIFLUOPERAZINE 10 MG PO SCH ×2 (08:11→19:42)
[2017-03-17] MEDS: METOPROLOL TARTRATE 25 MG TABLET PO SCH ×2 (04:49→16:58)
[2017-03-17] MEDS: HEPARIN 5,000 UNITS/ML, 1ML SQ SCH ×3 (04:49→22:00)
[2017-03-17 06:39] VITALS: BP 147/86
[2017-03-17] MEDS: MEMANTINE 10MG TABLET PO SCH ×2 (08:05→08:07)
[2017-03-17] MEDS: TRIFLUOPERAZINE 10 MG PO SCH ×2 (08:05→21:00)
[2017-03-17] MEDS: LOSARTAN 25MG TABLET PO SCH (08:05)
[2017-03-17 14:00] VITALS: BP 135/75
[2017-03-18] MEDS: METOPROLOL TARTRATE 25 MG TABLET PO SCH ×2 (06:00→17:16)
[2017-03-18] MEDS: HEPARIN 5,000 UNITS/ML, 1ML SQ SCH ×3 (06:00→22:00)
[2017-03-18] MEDS: LOSARTAN 25MG TABLET PO SCH (09:00)
[2017-03-18] MEDS: MEMANTINE 10MG TABLET PO SCH (09:00)
[2017-03-18] MEDS: TRIFLUOPERAZINE 10 MG PO SCH ×2 (09:00→22:14)
[2017-03-18 18:45] VITALS: BP 167/92
[2017-03-19 04:56] VITALS: BP 127/76
[2017-03-19] MEDS: HEPARIN 5,000 UNITS/ML, 1ML SQ SCH ×3 (05:36→20:59)
[2017-03-19] MEDS: METOPROLOL TARTRATE 25 MG TABLET PO SCH ×2 (05:36→18:39)
[2017-03-19 08:08] VITALS: BP 132/86
[2017-03-19] MEDS: MEMANTINE 10MG TABLET PO SCH (09:00)
[2017-03-19] MEDS: TRIFLUOPERAZINE 10 MG PO SCH ×2 (09:00→20:58)
[2017-03-19] MEDS: LOSARTAN 25MG TABLET PO SCH (10:11)
[2017-03-19 13:25] VITALS: BP 173/92
[2017-03-19 19:00] VITALS: BP 164/92
[2017-03-20 02:00] VITALS: BP 129/82
[2017-03-20] MEDS: HEPARIN 5,000 UNITS/ML, 1ML SQ SCH ×3 (05:06→22:00)
[2017-03-20] MEDS: METOPROLOL TARTRATE 25 MG TABLET PO SCH ×3 (05:06→18:00)
[2017-03-20 07:40] VITALS: BP 130/86
[2017-03-20] MEDS: MEMANTINE 10MG TABLET PO SCH (09:00)
[2017-03-20] MEDS: LOSARTAN 25MG TABLET PO SCH (10:19)
[2017-03-20] MEDS: TRIFLUOPERAZINE 10 MG PO SCH ×2 (10:19→21:00)
[2017-03-20 13:53] VITALS: BP 112/68
[2017-03-20 20:51] VITALS: BP 124/74
[2017-03-21 02:00] VITALS: BP 114/68
[2017-03-21] MEDS: METOPROLOL TARTRATE 25 MG TABLET PO SCH ×2 (06:00→18:16)
[2017-03-21] MEDS: HEPARIN 5,000 UNITS/ML, 1ML SQ SCH ×3 (06:00→22:32)
[2017-03-21 08:28] VITALS: BP 131/81
[2017-03-21] MEDS: LOSARTAN 25MG TABLET PO SCH (09:00)
[2017-03-21] MEDS: MEMANTINE 10MG TABLET PO SCH (09:00)
[2017-03-21] MEDS: TRIFLUOPERAZINE 10 MG PO SCH ×2 (09:03→20:10)
[2017-03-21 13:45] VITALS: BP 133/85
[2017-03-21 19:00] VITALS: BP 130/70
[2017-03-22 03:43] VITALS: BP 116/75
[2017-03-22] MEDS: METOPROLOL TARTRATE 25 MG TABLET PO SCH ×2 (05:51→17:59)
[2017-03-22] MEDS: HEPARIN 5,000 UNITS/ML, 1ML SQ SCH ×3 (05:52→19:20)
[2017-03-22 07:24] VITALS: BP 136/72
[2017-03-22] MEDS: LOSARTAN 25MG TABLET PO SCH (09:16)
[2017-03-22] MEDS: MEMANTINE 10MG TABLET PO SCH (09:16)
[2017-03-22] MEDS: TRIFLUOPERAZINE 10 MG PO SCH ×2 (09:17→20:28)
[2017-03-22 14:06] VITALS: BP 161/87
[2017-03-22] MEDS ORDERED: BISACODYL 10 MG SUPP PR PRN (20:00)
[2017-03-22] MEDS ORDERED: DOCUSATE 100 MG CAPSULE PO PRN (20:00)
[2017-03-22] MEDS ORDERED: POLYETHYLENE GLYCOL 17 GM PACKET PO PRN (20:00)
[2017-03-22] MEDS ORDERED: ONDANSETRON ODT 4 MG PO PRN (20:00)
[2017-03-22] MEDS ORDERED: hydrALAzine 20 MG/ML, 1ML IV PRN (20:00)
[2017-03-22] MEDS ORDERED: ACETAMINOPHEN 325 MG TABLET PO PRN (20:00)
[2017-03-22] MEDS ORDERED: ZIPRASIDONE 20 MG INJ IM PRN (20:00)
[2017-03-22 20:10] VITALS: BP 156/91
[2017-03-23 01:53] VITALS: BP 152/90
[2017-03-23] MEDS: HEPARIN 5,000 UNITS/ML, 1ML SQ SCH ×3 (04:28→19:57)
[2017-03-23] MEDS: METOPROLOL TARTRATE 25 MG TABLET PO SCH ×2 (05:31→18:09)
[2017-03-23] MEDS: TRIFLUOPERAZINE 10 MG PO SCH ×2 (07:50→19:54)
[2017-03-23] MEDS: MEMANTINE 10MG TABLET PO SCH (07:50)
[2017-03-23] MEDS: LOSARTAN 25MG TABLET PO SCH (07:50)
[2017-03-23 08:50] VITALS: BP 131/64
[2017-03-23 14:00] VITALS: BP 155/92
[2017-03-23 20:12] VITALS: BP 163/93
[2017-03-24 02:05] VITALS: BP 156/95
[2017-03-24] MEDS: METOPROLOL TARTRATE 25 MG TABLET PO SCH ×2 (06:00→17:58)
[2017-03-24] MEDS: HEPARIN 5,000 UNITS/ML, 1ML SQ SCH ×3 (06:00→22:00)
[2017-03-24 08:00] VITALS: BP 140/80
[2017-03-24] MEDS: TRIFLUOPERAZINE 10 MG PO SCH ×2 (09:00→20:24)
[2017-03-24] MEDS: MEMANTINE 10MG TABLET PO SCH (09:00)
[2017-03-24] MEDS: LOSARTAN 25MG TABLET PO SCH (09:00)
[2017-03-25] MEDS: METOPROLOL TARTRATE 25 MG TABLET PO SCH ×2 (06:00→18:22)
[2017-03-25] MEDS: HEPARIN 5,000 UNITS/ML, 1ML SQ SCH ×3 (06:00→22:00)
[2017-03-25 08:08] VITALS: BP 173/90
[2017-03-25] MEDS: MEMANTINE 10MG TABLET PO SCH (09:38)
[2017-03-25] MEDS: LOSARTAN 25MG TABLET PO SCH (09:38)
[2017-03-25] MEDS: TRIFLUOPERAZINE 10 MG PO SCH ×2 (09:39→21:00)
[2017-03-25 13:44] VITALS: BP 170/94
[2017-03-25 20:17] VITALS: BP 142/90
[2017-03-26 01:21] VITALS: BP 118/67
[2017-03-26] MEDS: METOPROLOL TARTRATE 25 MG TABLET PO SCH ×2 (06:00→17:45)
[2017-03-26] MEDS: HEPARIN 5,000 UNITS/ML, 1ML SQ SCH ×3 (06:00→22:00)
[2017-03-26 08:42] VITALS: BP 122/70
[2017-03-26] MEDS: LOSARTAN 25MG TABLET PO SCH (08:58)
[2017-03-26] MEDS: MEMANTINE 10MG TABLET PO SCH (08:58)
[2017-03-26] MEDS: TRIFLUOPERAZINE 10 MG PO SCH ×2 (08:58→20:15)
[2017-03-26 15:01] VITALS: BP 131/78
[2017-03-26 21:14] VITALS: BP 171/87
[2017-03-27 05:36] LABS: HEMATOCRIT 30.1 % (34.6-47.8); HEMOGLOBIN 10.3 g/dL (11.7-16.4); WHITE BLOOD COUNT 5.2 x10^3/uL (3.4-10)
[2017-03-27 05:43] LABS: BLOOD UREA NITROGEN 88 mg/dL (7-18)
[2017-03-27] MEDS: METOPROLOL TARTRATE 25 MG TABLET PO SCH ×3 (06:00→17:56)
[2017-03-27] MEDS: HEPARIN 5,000 UNITS/ML, 1ML SQ SCH ×3 (06:00→22:00)
[2017-03-27] MEDS: TRIFLUOPERAZINE 10 MG PO SCH ×2 (09:00→20:54)
[2017-03-27] MEDS: MEMANTINE 10MG TABLET PO SCH (09:00)
[2017-03-27] MEDS: LOSARTAN 25MG TABLET PO SCH (09:00)
[2017-03-27 18:45] VITALS: BP 137/86
[2017-03-28 01:25] VITALS: BP 148/86
[2017-03-28] MEDS: METOPROLOL TARTRATE 25 MG TABLET PO SCH ×2 (05:59→16:57)
[2017-03-28] MEDS: HEPARIN 5,000 UNITS/ML, 1ML SQ SCH ×3 (05:59→22:00)
[2017-03-28 07:20] VITALS: BP 147/86
[2017-03-28] MEDS: TRIFLUOPERAZINE 10 MG PO SCH ×2 (08:48→20:13)
[2017-03-28] MEDS: MEMANTINE 10MG TABLET PO SCH (08:48)
[2017-03-28] MEDS: LOSARTAN 25MG TABLET PO SCH (08:49)
[2017-03-28 14:10] VITALS: BP 143/89
[2017-03-28 20:13] VITALS: BP 173/98
[2017-03-29] MEDS: HEPARIN 5,000 UNITS/ML, 1ML SQ SCH ×3 (05:17→22:00)
[2017-03-29] MEDS: METOPROLOL TARTRATE 25 MG TABLET PO SCH ×2 (05:17→18:00)
[2017-03-29 07:50] VITALS: BP 163/86
[2017-03-29] MEDS: TRIFLUOPERAZINE 10 MG PO SCH ×2 (08:15→21:00)
[2017-03-29] MEDS: MEMANTINE 10MG TABLET PO SCH (08:16)
[2017-03-29] MEDS: LOSARTAN 25MG TABLET PO SCH (08:16)
[2017-03-29 13:48] VITALS: BP 158/84
[2017-03-29] MEDS ORDERED: POLYETHYLENE GLYCOL 17 GM PACKET PO PRN (16:30)
[2017-03-29] MEDS ORDERED: DOCUSATE 100 MG CAPSULE PO PRN (16:30)
[2017-03-29] MEDS ORDERED: ACETAMINOPHEN 325 MG TABLET PO PRN (16:30)
[2017-03-29] MEDS ORDERED: hydrALAzine 20 MG/ML, 1ML IV PRN (16:30)
[2017-03-29] MEDS ORDERED: ONDANSETRON ODT 4 MG PO PRN (16:30)
[2017-03-29] MEDS ORDERED: BISACODYL 10 MG SUPP PR PRN (16:30)
[2017-03-29 20:00] VITALS: BP 138/75
[2017-03-30 02:30] VITALS: BP 150/84
[2017-03-30] MEDS: HEPARIN 5,000 UNITS/ML, 1ML SQ SCH ×3 (05:41→22:00)
[2017-03-30] MEDS: METOPROLOL TARTRATE 25 MG TABLET PO SCH ×2 (05:41→18:00)
[2017-03-30] MEDS: LOSARTAN 25MG TABLET PO SCH (09:00)
[2017-03-30] MEDS: TRIFLUOPERAZINE 10 MG PO SCH ×2 (09:00→21:00)
[2017-03-30] MEDS: MEMANTINE 10MG TABLET PO SCH (09:00)
[2017-03-31] MEDS: HEPARIN 5,000 UNITS/ML, 1ML SQ SCH ×3 (06:00→22:00)
[2017-03-31] MEDS: METOPROLOL TARTRATE 25 MG TABLET PO SCH ×2 (06:00→18:00)
[2017-03-31 08:10] VITALS: BP 131/76
[2017-03-31] MEDS: LOSARTAN 25MG TABLET PO SCH (09:00)
[2017-03-31] MEDS: MEMANTINE 10MG TABLET PO SCH (09:00)
[2017-03-31] MEDS: TRIFLUOPERAZINE 10 MG PO SCH ×2 (09:00→20:40)
[2017-03-31 14:50] VITALS: BP 162/84
[2017-03-31 19:48] VITALS: BP 155/81
[2017-04-01] MEDS: HEPARIN 5,000 UNITS/ML, 1ML SQ SCH ×3 (06:00→21:34)
[2017-04-01] MEDS: METOPROLOL TARTRATE 25 MG TABLET PO SCH ×2 (06:00→17:42)
[2017-04-01 07:21] VITALS: BP 140/98
[2017-04-01] MEDS: MEMANTINE 10MG TABLET PO SCH (08:57)
[2017-04-01] MEDS: LOSARTAN 25MG TABLET PO SCH (08:57)
[2017-04-01] MEDS: TRIFLUOPERAZINE 10 MG PO SCH ×2 (08:57→21:00)
[2017-04-01 12:00] VITALS: BP 110/73
[2017-04-01 20:30] VITALS: BP 151/82
[2017-04-02 01:50] VITALS: BP 158/85
[2017-04-02] MEDS: METOPROLOL TARTRATE 25 MG TABLET PO SCH ×2 (05:17→17:22)
[2017-04-02] MEDS: HEPARIN 5,000 UNITS/ML, 1ML SQ SCH ×3 (05:18→22:00)
[2017-04-02] MEDS: TRIFLUOPERAZINE 10 MG PO SCH ×2 (07:26→21:00)
[2017-04-02] MEDS: MEMANTINE 10MG TABLET PO SCH (07:26)
[2017-04-02] MEDS: LOSARTAN 25MG TABLET PO SCH (07:26)
[2017-04-02 07:59] VITALS: BP 151/80
[2017-04-03 05:00] VITALS: BP 129/85
[2017-04-03] MEDS: METOPROLOL TARTRATE 25 MG TABLET PO SCH ×2 (05:52→18:00)
[2017-04-03] MEDS: HEPARIN 5,000 UNITS/ML, 1ML SQ SCH ×3 (05:52→22:00)
[2017-04-03 07:15] VITALS: BP 146/81
[2017-04-03] MEDS: MEMANTINE 10MG TABLET PO SCH (09:00)
[2017-04-03] MEDS: LOSARTAN 25MG TABLET PO SCH (09:00)
[2017-04-03] MEDS: TRIFLUOPERAZINE 10 MG PO SCH ×2 (12:10→20:06)
[2017-04-03 14:04] VITALS: BP_SYST 147; BP_SYST 148; BP_DIAS 85; BP_DIAS 95
[2017-04-03 19:07] VITALS: BP 137/82
[2017-04-04 00:43] VITALS: BP 116/76
[2017-04-04] MEDS: HEPARIN 5,000 UNITS/ML, 1ML SQ SCH ×3 (05:19→19:54)
[2017-04-04] MEDS: METOPROLOL TARTRATE 25 MG TABLET PO SCH ×2 (05:19→18:00)
[2017-04-04 07:57] VITALS: BP 140/87
[2017-04-04] MEDS: TRIFLUOPERAZINE 10 MG PO SCH ×2 (08:37→21:00)
[2017-04-04] MEDS: LOSARTAN 25MG TABLET PO SCH ×2 (09:00→14:49)
[2017-04-04] MEDS: MEMANTINE 10MG TABLET PO SCH (09:00)
[2017-04-04 13:57] VITALS: BP 162/95
[2017-04-04 18:49] VITALS: BP 158/94
[2017-04-05 01:00] VITALS: BP 132/79
[2017-04-05] MEDS: HEPARIN 5,000 UNITS/ML, 1ML SQ SCH ×3 (05:32→21:51)
[2017-04-05] MEDS: METOPROLOL TARTRATE 25 MG TABLET PO SCH ×2 (05:33→18:00)
[2017-04-05 08:00] VITALS: BP 159/94
[2017-04-05] MEDS: LOSARTAN 25MG TABLET PO SCH (09:00)
[2017-04-05] MEDS: TRIFLUOPERAZINE 10 MG PO SCH ×2 (09:00→21:51)
[2017-04-05] MEDS: MEMANTINE 10MG TABLET PO SCH (09:00)
[2017-04-05 19:00] VITALS: BP 134/92
[2017-04-05] MEDS ORDERED: DOCUSATE 100 MG CAPSULE PO PRN (22:30)
[2017-04-05] MEDS ORDERED: BISACODYL 10 MG SUPP PR PRN (22:30)
[2017-04-05] MEDS ORDERED: POLYETHYLENE GLYCOL 17 GM PACKET PO PRN (22:30)
[2017-04-05] MEDS ORDERED: ONDANSETRON ODT 4 MG PO PRN (22:30)
[2017-04-05] MEDS ORDERED: ACETAMINOPHEN 325 MG TABLET PO PRN (22:30)
[2017-04-05] MEDS ORDERED: ZIPRASIDONE 20 MG INJ IM PRN (22:30)
[2017-04-05] MEDS ORDERED: hydrALAzine 20 MG/ML, 1ML IV PRN (22:30)
[2017-04-06 01:50] VITALS: BP 146/79
[2017-04-06] MEDS: HEPARIN 5,000 UNITS/ML, 1ML SQ SCH ×3 (05:50→21:55)
[2017-04-06] MEDS: METOPROLOL TARTRATE 25 MG TABLET PO SCH ×2 (05:50→18:00)
[2017-04-06 07:43] VITALS: BP 149/81
[2017-04-06] MEDS: MEMANTINE 10MG TABLET PO SCH (09:00)
[2017-04-06] MEDS: LOSARTAN 25MG TABLET PO SCH (09:00)
[2017-04-06] MEDS: TRIFLUOPERAZINE 10 MG PO SCH ×2 (09:00→21:54)
[2017-04-06 14:06] VITALS: BP 156/88
[2017-04-06 19:25] VITALS: BP 159/79
[2017-04-07 02:57] VITALS: BP 145/84
[2017-04-07] MEDS: METOPROLOL TARTRATE 25 MG TABLET PO SCH ×2 (06:08→18:00)
[2017-04-07] MEDS: HEPARIN 5,000 UNITS/ML, 1ML SQ SCH ×3 (06:09→22:00)
[2017-04-07 06:49] VITALS: BP 118/79
[2017-04-07] MEDS: TRIFLUOPERAZINE 10 MG PO SCH ×2 (07:56→20:37)
[2017-04-07] MEDS: LOSARTAN 25MG TABLET PO SCH (09:00)
[2017-04-07] MEDS: MEMANTINE 10MG TABLET PO SCH (09:00)
[2017-04-07 14:50] VITALS: BP 142/84
[2017-04-07 19:26] VITALS: BP 179/99
[2017-04-08 02:59] VITALS: BP 127/74
[2017-04-08] MEDS: HEPARIN 5,000 UNITS/ML, 1ML SQ SCH ×3 (05:25→21:46)
[2017-04-08] MEDS: METOPROLOL TARTRATE 25 MG TABLET PO SCH ×2 (05:25→17:42)
[2017-04-08 07:02] VITALS: BP 140/79
[2017-04-08] MEDS: TRIFLUOPERAZINE 10 MG PO SCH ×2 (09:00→19:57)
[2017-04-08] MEDS: LOSARTAN 25MG TABLET PO SCH (09:00)
[2017-04-08] MEDS: MEMANTINE 10MG TABLET PO SCH (09:00)
[2017-04-08 10:01] VITALS: BP 140/79
[2017-04-08 19:01] VITALS: BP 140/79
[2017-04-09 01:04] VITALS: BP 134/72
[2017-04-09] MEDS: METOPROLOL TARTRATE 25 MG TABLET PO SCH ×2 (06:00→18:00)
[2017-04-09] MEDS: HEPARIN 5,000 UNITS/ML, 1ML SQ SCH ×3 (06:00→22:00)
[2017-04-09 07:38] VITALS: BP 146/93
[2017-04-09] MEDS: LOSARTAN 25MG TABLET PO SCH (08:51)
[2017-04-09] MEDS: MEMANTINE 10MG TABLET PO SCH (08:52)
[2017-04-09] MEDS: TRIFLUOPERAZINE 10 MG PO SCH ×2 (08:52→21:00)
[2017-04-09 14:16] VITALS: BP 154/89
[2017-04-09 22:30] VITALS: BP 131/82
[2017-04-10 03:40] VITALS: BP 158/87
[2017-04-10] MEDS: METOPROLOL TARTRATE 25 MG TABLET PO SCH ×2 (05:51→18:00)
[2017-04-10] MEDS: HEPARIN 5,000 UNITS/ML, 1ML SQ SCH ×3 (05:51→22:00)
[2017-04-10] MEDS: LOSARTAN 25MG TABLET PO SCH (09:00)
[2017-04-10] MEDS: TRIFLUOPERAZINE 10 MG PO SCH ×2 (09:00→21:00)
[2017-04-10] MEDS: MEMANTINE 10MG TABLET PO SCH (09:00)
[2017-04-10 22:26] VITALS: BP 144/84
[2017-04-11 01:21] VITALS: BP 154/89
[2017-04-11] MEDS: HEPARIN 5,000 UNITS/ML, 1ML SQ SCH ×3 (06:00→21:13)
[2017-04-11] MEDS: LOSARTAN 25MG TABLET PO SCH (08:28)
[2017-04-11] MEDS: METOPROLOL TARTRATE 25 MG TABLET PO SCH ×2 (08:28→18:27)
[2017-04-11] MEDS: MEMANTINE 10MG TABLET PO SCH (08:28)
[2017-04-11] MEDS: TRIFLUOPERAZINE 10 MG PO SCH ×2 (08:29→21:13)
[2017-04-11 19:30] VITALS: BP 128/85
[2017-04-12] MEDS: METOPROLOL TARTRATE 25 MG TABLET PO SCH ×2 (05:36→17:43)
[2017-04-12] MEDS: HEPARIN 5,000 UNITS/ML, 1ML SQ SCH ×3 (05:36→21:45)
[2017-04-12 06:40] VITALS: BP 153/82
[2017-04-12] MEDS: TRIFLUOPERAZINE 10 MG PO SCH ×3 (10:28→21:44)
[2017-04-12] MEDS: LOSARTAN 25MG TABLET PO SCH ×2 (10:28→10:36)
[2017-04-12] MEDS: MEMANTINE 10MG TABLET PO SCH (10:28)
[2017-04-12 19:04] VITALS: BP 166/87
[2017-04-12] MEDS ORDERED: ONDANSETRON ODT 4 MG PO PRN (19:30)
[2017-04-12] MEDS ORDERED: hydrALAzine 20 MG/ML, 1ML IV PRN (19:30)
[2017-04-12] MEDS ORDERED: BISACODYL 10 MG SUPP PR PRN (19:30)
[2017-04-12] MEDS ORDERED: ZIPRASIDONE 20 MG INJ IM PRN (19:30)
[2017-04-12] MEDS ORDERED: POLYETHYLENE GLYCOL 17 GM PACKET PO PRN (19:30)
[2017-04-12] MEDS ORDERED: DOCUSATE 100 MG CAPSULE PO PRN (19:30)
[2017-04-12] MEDS ORDERED: ACETAMINOPHEN 325 MG TABLET PO PRN (19:30)
[2017-04-12] MEDS: cloniDINE 0.1MG PATCH TD SCH (21:44)
[2017-04-13 01:53] VITALS: BP 162/86
[2017-04-13] MEDS: HEPARIN 5,000 UNITS/ML, 1ML SQ SCH ×3 (05:14→22:00)
[2017-04-13] MEDS: METOPROLOL TARTRATE 25 MG TABLET PO SCH ×2 (05:14→18:27)
[2017-04-13] MEDS ORDERED: cloniDINE 0.1MG PATCH TD SCH (09:00)
[2017-04-13] MEDS: MEMANTINE 10MG TABLET PO SCH ×2 (09:58→13:29)
[2017-04-13] MEDS: LOSARTAN 25MG TABLET PO SCH ×2 (09:58→13:29)
[2017-04-13] MEDS: TRIFLUOPERAZINE 10 MG PO SCH ×3 (09:58→21:09)
[2017-04-13 10:48] VITALS: BP 175/91
[2017-04-14] MEDS: HEPARIN 5,000 UNITS/ML, 1ML SQ SCH ×3 (04:06→19:01)
[2017-04-14] MEDS: METOPROLOL TARTRATE 25 MG TABLET PO SCH ×2 (04:06→17:52)
[2017-04-14] MEDS: TRIFLUOPERAZINE 10 MG PO SCH ×2 (09:00→18:30)
[2017-04-14] MEDS: LOSARTAN 25MG TABLET PO SCH (09:00)
[2017-04-14] MEDS: MEMANTINE 10MG TABLET PO SCH (09:00)
[2017-04-14 10:44] VITALS: BP 112/63
[2017-04-14 19:16] VITALS: BP 103/70
[2017-04-15] MEDS: METOPROLOL TARTRATE 25 MG TABLET PO SCH ×2 (07:13→18:00)
[2017-04-15] MEDS: HEPARIN 5,000 UNITS/ML, 1ML SQ SCH ×3 (07:13→22:33)
[2017-04-15] MEDS: MEMANTINE 10MG TABLET PO SCH (08:04)
[2017-04-15] MEDS: TRIFLUOPERAZINE 10 MG PO SCH ×2 (08:04→22:33)
[2017-04-15] MEDS: LOSARTAN 25MG TABLET PO SCH (08:04)
[2017-04-16] MEDS: METOPROLOL TARTRATE 25 MG TABLET PO SCH ×2 (05:32→18:07)
[2017-04-16] MEDS: HEPARIN 5,000 UNITS/ML, 1ML SQ SCH ×3 (05:32→20:49)
[2017-04-16] MEDS: MEMANTINE 10MG TABLET PO SCH (07:57)
[2017-04-16] MEDS: LOSARTAN 25MG TABLET PO SCH (07:57)
[2017-04-16] MEDS: TRIFLUOPERAZINE 10 MG PO SCH ×2 (07:57→20:48)
[2017-04-16 08:30] VITALS: BP 100/66
[2017-04-16 12:49] VITALS: BP 115/74
[2017-04-16 20:29] VITALS: BP 127/71
[2017-04-17 02:04] VITALS: BP 147/75
[2017-04-17] MEDS: HEPARIN 5,000 UNITS/ML, 1ML SQ SCH ×3 (06:00→21:34)
[2017-04-17] MEDS: METOPROLOL TARTRATE 25 MG TABLET PO SCH ×2 (06:00→18:19)
[2017-04-17 08:00] VITALS: BP 169/78
[2017-04-17] MEDS: MEMANTINE 10MG TABLET PO SCH (09:39)
[2017-04-17] MEDS: LOSARTAN 25MG TABLET PO SCH (09:39)
[2017-04-17] MEDS: TRIFLUOPERAZINE 10 MG PO SCH ×2 (09:39→19:46)
[2017-04-17 13:05] VITALS: BP 172/91
[2017-04-18] MEDS: METOPROLOL TARTRATE 25 MG TABLET PO SCH ×2 (06:00→17:18)
[2017-04-18] MEDS: HEPARIN 5,000 UNITS/ML, 1ML SQ SCH ×3 (06:00→21:41)
[2017-04-18] MEDS: LOSARTAN 25MG TABLET PO SCH (09:00)
[2017-04-18] MEDS: MEMANTINE 10MG TABLET PO SCH (09:00)
[2017-04-18] MEDS: TRIFLUOPERAZINE 10 MG PO SCH ×2 (09:00→21:41)
[2017-04-18 19:25] VITALS: BP 173/85
[2017-04-19 01:21] VITALS: BP 155/84
[2017-04-19] MEDS: METOPROLOL TARTRATE 25 MG TABLET PO SCH ×2 (04:46→18:24)
[2017-04-19] MEDS: HEPARIN 5,000 UNITS/ML, 1ML SQ SCH ×3 (04:46→22:00)
[2017-04-19] MEDS: TRIFLUOPERAZINE 10 MG PO SCH ×2 (09:37→20:22)
[2017-04-19] MEDS: MEMANTINE 10MG TABLET PO SCH (09:37)
[2017-04-19] MEDS: LOSARTAN 25MG TABLET PO SCH (09:38)
[2017-04-19 09:41] VITALS: BP 136/88
[2017-04-19 12:55] VITALS: BP 154/88
[2017-04-19] MEDS ORDERED: POLYETHYLENE GLYCOL 17 GM PACKET PO PRN (16:00)
[2017-04-19] MEDS ORDERED: BISACODYL 10 MG SUPP PR PRN (16:00)
[2017-04-19] MEDS ORDERED: ACETAMINOPHEN 325 MG TABLET PO PRN (16:00)
[2017-04-19] MEDS ORDERED: ONDANSETRON ODT 4 MG PO PRN (16:00)
[2017-04-19] MEDS ORDERED: DOCUSATE 100 MG CAPSULE PO PRN (16:00)
[2017-04-19] MEDS ORDERED: ZIPRASIDONE 20 MG INJ IM PRN (16:00)
[2017-04-19] MEDS ORDERED: hydrALAzine 20 MG/ML, 1ML IV PRN (16:00)
[2017-04-19] MEDS: cloniDINE 0.1MG PATCH TD SCH (19:30)
[2017-04-19 20:26] VITALS: BP 110/61
[2017-04-20] MEDS: HEPARIN 5,000 UNITS/ML, 1ML SQ SCH ×3 (04:05→22:00)
[2017-04-20] MEDS: METOPROLOL TARTRATE 25 MG TABLET PO SCH ×2 (04:05→17:12)
[2017-04-20] MEDS: LOSARTAN 25MG TABLET PO SCH (08:53)
[2017-04-20] MEDS: MEMANTINE 10MG TABLET PO SCH (08:53)
[2017-04-20] MEDS: TRIFLUOPERAZINE 10 MG PO SCH ×2 (08:54→20:57)
[2017-04-20 13:42] VITALS: BP 128/81
[2017-04-20 19:32] VITALS: BP 158/94
[2017-04-21] MEDS: METOPROLOL TARTRATE 25 MG TABLET PO SCH ×2 (05:58→17:18)
[2017-04-21] MEDS: HEPARIN 5,000 UNITS/ML, 1ML SQ SCH ×3 (05:58→19:09)
[2017-04-21] MEDS: LOSARTAN 25MG TABLET PO SCH (07:35)
[2017-04-21] MEDS: MEMANTINE 10MG TABLET PO SCH (07:35)
[2017-04-21] MEDS: TRIFLUOPERAZINE 10 MG PO SCH ×2 (07:36→19:39)
[2017-04-21 20:36] VITALS: BP 157/99
[2017-04-22 02:11] VITALS: BP 151/84
[2017-04-22] MEDS: METOPROLOL TARTRATE 25 MG TABLET PO SCH ×2 (06:00→17:30)
[2017-04-22] MEDS: HEPARIN 5,000 UNITS/ML, 1ML SQ SCH ×3 (06:00→22:00)
[2017-04-22 07:03] VITALS: BP 153/92
[2017-04-22] MEDS: MEMANTINE 10MG TABLET PO SCH (07:33)
[2017-04-22] MEDS: TRIFLUOPERAZINE 10 MG PO SCH ×2 (07:33→21:00)
[2017-04-22] MEDS: LOSARTAN 25MG TABLET PO SCH (07:33)
[2017-04-22 12:57] VITALS: BP 152/77
[2017-04-22 20:44] VITALS: BP 148/87
[2017-04-23] MEDS: HEPARIN 5,000 UNITS/ML, 1ML SQ SCH ×3 (06:00→22:00)
[2017-04-23] MEDS: METOPROLOL TARTRATE 25 MG TABLET PO SCH ×2 (06:00→16:59)
[2017-04-23] MEDS: LOSARTAN 25MG TABLET PO SCH (09:00)
[2017-04-23] MEDS: TRIFLUOPERAZINE 10 MG PO SCH ×2 (09:00→20:28)
[2017-04-23] MEDS: MEMANTINE 10MG TABLET PO SCH (09:00)
[2017-04-23 20:15] VITALS: BP 152/85
[2017-04-24] MEDS: METOPROLOL TARTRATE 25 MG TABLET PO SCH ×2 (06:00→18:00)
[2017-04-24] MEDS: HEPARIN 5,000 UNITS/ML, 1ML SQ SCH ×3 (06:00→22:00)
[2017-04-24] MEDS: TRIFLUOPERAZINE 10 MG PO SCH ×2 (09:00→19:46)
[2017-04-24] MEDS: MEMANTINE 10MG TABLET PO SCH (09:00)
[2017-04-24] MEDS: LOSARTAN 25MG TABLET PO SCH (09:00)
[2017-04-24 14:07] VITALS: BP 116/80
[2017-04-24 19:28] VITALS: BP 168/90
[2017-04-25 00:56] VITALS: BP 170/81
[2017-04-25] MEDS: METOPROLOL TARTRATE 25 MG TABLET PO SCH ×2 (05:16→18:00)
[2017-04-25] MEDS: HEPARIN 5,000 UNITS/ML, 1ML SQ SCH ×3 (05:17→22:00)
[2017-04-25 07:39] VITALS: BP 128/80
[2017-04-25] MEDS: MEMANTINE 10MG TABLET PO SCH (09:00)
[2017-04-25] MEDS: TRIFLUOPERAZINE 10 MG PO SCH ×3 (09:00→21:00)
[2017-04-25] MEDS: LOSARTAN 25MG TABLET PO SCH (09:00)
[2017-04-25 14:08] VITALS: BP 149/91
[2017-04-25 20:58] VITALS: BP 142/70
[2017-04-26 02:16] VITALS: BP 137/83
[2017-04-26] MEDS: HEPARIN 5,000 UNITS/ML, 1ML SQ SCH ×3 (05:50→22:00)
[2017-04-26] MEDS: METOPROLOL TARTRATE 25 MG TABLET PO SCH ×2 (05:50→17:34)
[2017-04-26 07:32] VITALS: BP 128/84
[2017-04-26] MEDS: TRIFLUOPERAZINE 10 MG PO SCH ×2 (09:00→20:56)
[2017-04-26] MEDS: LOSARTAN 25MG TABLET PO SCH (09:00)
[2017-04-26] MEDS: MEMANTINE 10MG TABLET PO SCH (09:00)
[2017-04-26] MEDS ORDERED: BISACODYL 10 MG SUPP PR PRN (16:00)
[2017-04-26] MEDS ORDERED: ONDANSETRON ODT 4 MG PO PRN (16:00)
[2017-04-26] MEDS ORDERED: hydrALAzine 20 MG/ML, 1ML IV PRN (16:00)
[2017-04-26] MEDS ORDERED: ACETAMINOPHEN 325 MG TABLET PO PRN (16:00)
[2017-04-26] MEDS ORDERED: ZIPRASIDONE 20 MG INJ IM PRN (16:00)
[2017-04-26] MEDS ORDERED: POLYETHYLENE GLYCOL 17 GM PACKET PO PRN (16:00)
[2017-04-26] MEDS ORDERED: DOCUSATE 100 MG CAPSULE PO PRN (16:00)
[2017-04-26 19:22] VITALS: BP 158/84
[2017-04-26] MEDS: cloniDINE 0.1MG PATCH TD SCH (19:30)
[2017-04-27 01:06] VITALS: BP 153/81
[2017-04-27] MEDS: HEPARIN 5,000 UNITS/ML, 1ML SQ SCH ×3 (06:00→22:00)
[2017-04-27] MEDS: METOPROLOL TARTRATE 25 MG TABLET PO SCH ×2 (06:00→18:12)
[2017-04-27 06:59] VITALS: BP 129/79
[2017-04-27] MEDS: LOSARTAN 25MG TABLET PO SCH (08:58)
[2017-04-27] MEDS: TRIFLUOPERAZINE 10 MG PO SCH ×2 (08:58→21:00)
[2017-04-27] MEDS: MEMANTINE 10MG TABLET PO SCH (08:58)
[2017-04-27 14:15] VITALS: BP 138/74
[2017-04-27 19:32] VITALS: BP 145/80
[2017-04-28] MEDS: HEPARIN 5,000 UNITS/ML, 1ML SQ SCH ×2 (06:00→14:00)
[2017-04-28] MEDS: METOPROLOL TARTRATE 25 MG TABLET PO SCH (06:00)
[2017-04-28] MEDS: LOSARTAN 25MG TABLET PO SCH (08:48)
[2017-04-28] MEDS: TRIFLUOPERAZINE 10 MG PO SCH (08:49)
[2017-04-28] MEDS: MEMANTINE 10MG TABLET PO SCH (08:49)
[2017-04-28] MEDS ORDERED: TRIF10TA PO (12:51)
[2017-04-28] MEDS ORDERED: MEMA10TA20 PO (12:51)
[2017-04-28] MEDS ORDERED: METO25TA35 PO (12:51)
[2017-04-28] MEDS ORDERED: LOSA25TA2 PO (12:51)
[2017-04-28] MEDS ORDERED: CLON-365 PO (12:51)
== END 2017-04-28 15:24 | DRG 884 ==
LOC: ED 18:50 → EDIP 19:59 → SUATTDRO 20:01 → 4WST 23:45 → 3NE 01-24 17:42
PROVIDERS: ATTEND Hospitalist
DX: F09 Unspecified mental disorder due to known physiological condition (principal); E43 Unspecified severe protein-calorie malnutrition; G93.41 Metabolic encephalopathy; F02.81 Dementia in other diseases classified elsewhere, unspecified severity, with behavioral disturbance; G30.1 Alzheimer's disease with late onset; E11.22 Type 2 diabetes mellitus with diabetic chronic kidney disease; E11.42 Type 2 diabetes mellitus with diabetic polyneuropathy; E87.5 Hyperkalemia; N18.4 Chronic kidney disease, stage 4 (severe); K62.5 Hemorrhage of anus and rectum; S81.802A Unspecified open wound, left lower leg, initial encounter; F20.9 Schizophrenia, unspecified; F22 Delusional disorders; F39 Unspecified mood [affective] disorder; X58.XXXA Exposure to other specified factors, initial encounter; R45.1 Restlessness and agitation; I12.9 Hypertensive chronic kidney disease with stage 1 through stage 4 chronic kidney disease, or unspecified chronic kidney disease; Z53.29 Procedure and treatment not carried out because of patient's decision for other reasons; R45.850 Homicidal ideations; Z91.14 Patient's other noncompliance with medication regimen; Y93.89 Activity, other specified; Y92.89 Other specified places as the place of occurrence of the external cause; Y99.8 Other external cause status; Z68.34 Body mass index [BMI] 34.0-34.9, adult
CPT/HCPCS: 36415; 76770; 80047; 80048; 80053; 80307; 80329; 81001; 82040; 82962; 84100; 85025; 93005; 93922; 96372; 92523-GN; G0480; J2060